=== PATIENT | male | born 1975 | race Two or more races ===

== ENCOUNTER 2021-07-26 08:55 | Emergency (ER) | payer OTHER ==
[~2021-07-26] VITALS: Ht 167.6 cm; Wt 90.6 kg
--- NOTE | 2021-07-26 09:13 | NUR ---
Sean UMAÑA at bedside. Patient is difficult to arouse. Per officer patient was talking to them in [place] before he fell and has been somewhat lethargic since then. Sean UMAÑA to order head CT.
--- NOTE | 2021-07-26 10:33 | NUR ---
P officer at the bedside. Pt is in custody. Pt is mumbling in Urdu. He responds to commands. Denies pain. Head cleaned of dried blood. Laceration to back of head, 1.5cm. Bleeding controled.
[2021-07-26] MEDS ORDERED: TETanus/Pertussis (Acell)/Diphther VAC/PF (Tdap-Adult) 0.5ml syringe IMVAC ONE (10:40)
--- NOTE | 2021-07-26 10:50 | NUR ---
Bandage applied to staple site, posterior head.
--- NOTE | 2021-07-26 10:55 | NUR ---
Pt and [employer] officer given d/c instructions. Ambulatory with a steady gait.
[2021-07-26 11:04] VITALS: BP 146/105
== END 2021-07-26 10:55 ==
LOC: ER 08:56
DX: S01.01XA Laceration without foreign body of scalp, initial encounter (principal); F15.90 Other stimulant use, unspecified, uncomplicated; Z59.0 Homelessness; W22.8XXA Striking against or struck by other objects, initial encounter; Y93.89 Activity, other specified; Y92.89 Other specified places as the place of occurrence of the external cause; Y99.8 Other external cause status
CPT/HCPCS: 12001; 70450; 70486; 72125; 90471; 90715; 99285